=== PATIENT | female | born 1980 | race Caucasian/White ===

== ENCOUNTER 2018-10-31 12:26 | Emergency (ER) | payer OTHER, SELFPAY ==
[2018-10-31] MEDS ORDERED: Acetaminophen 500 MG TAB ONE (14:04)
[2018-10-31] MEDS ORDERED: Metoclopramide HCl 10 MG/2 ML VIAL ONE (14:04)
[2018-10-31] MEDS ORDERED: Ketorolac Tromethamine 30 MG/ML VIAL ONE (14:04)
[2018-10-31 14:06] LABS: #Basophils 0.1 thou/uL (0.0-0.2); #Eosinphils 0.2 thou/uL (0.0-0.7); #Lymphocytes 3.6 thou/uL (1.20-3.40); #Monocytes 0.5 thou/uL (0.11-0.59); #Neutrophils 5.6 thou/uL (1.40-6.50); %Basophils 0.8 % (0.0-1.0); %Eosinophils 1.8 % (0.0-10.0); %Lymphocytes 36.5 % (21.0-51.0); %Monocytes 4.6 % (0.0-10.0); %Neutrophils 56.3 % (42.0-75.0); Hemoglobin 14.4 g/dL (12.0-16.0); Mean Corpuscular HGB CONC 32.4 g/dL (32.0-36.0); Mean Corpuscular Hemoglobin 28.3 pg (27.0-31.0); Mean Corpuscular Volume 87.2 fL (78.0-98.0); Mean Platelet Volume 6.6 fL (7.4-10.4); Platelet Count 303 thou/uL (130-400); RBC Distribution Width 11.6 % (11.5-14.5); Red Blood Cell (RBC) Count 5.09 mill/uL (4.20-5.40); White Blood Cell (WBC) Count 9.9 thou/uL (4.8-10.8)
[2018-10-31 14:11] LABS: BHCG - Serum Negative (NEGATIVE); Pregs Control Background? CLEAR/WHITE (CLR/WHITE); Pregs Control Bar Appear? YES (CONTROL BAR)
[2018-10-31 14:30] LABS: ALT (SGPT) 72 U/L (8-55); AST (SGOT) 57 U/L (5-34); Albumin 4.2 g/dL (3.5-5.0); Alkaline Phosphatase 85 U/L (40-150); Anion Gap 15 mmol/L (10-20); BUN (Urea Nitrogen) 7 mg/dL (7.0-18.7); Bilirubin, Total 0.5 mg/dL (0.2-1.2); Calc. Creatinine Clearance 0 mL/min (70-130); Calcium 10.1 mg/dL (7.8-10.44); Carbon Dioxide 27 mmol/L (22-29); Chloride 99 mmol/L (98-107); Estimated GFR-MDRD 66; Globulin 4.5 g/dL (2.4-3.5); Glucose 170 mg/dL (70-105); Potassium 3.8 mmol/L (3.5-5.1); Protein, Total 8.7 g/dL (6.0-8.3); Sodium 137 mmol/L (136-145)
--- NOTE | 2018-10-31 14:45 | RAD ---
LEFT FOOT RADIOGRAPHS 3 VIEWS: DATE: 10/31/2018. PROVIDED CLINICAL HISTORY: Left foot pain. FINDINGS: There is no evidence for a fracture or other acute osseous abnormality. Alignment appears anatomic. Joint spaces appear preserved. Posterior calcaneal enthesophyte formation is noted. IMPRESSION: No evidence for an acute osseous abnormality. If there is persistent clinical concern, conservative management and followup imaging are advised. POS: [facility]
== END 2018-10-31 15:20 | disposition home or self-care (01) ==
LOC: ERS 12:26
DX: G43.909 Migraine, unspecified, not intractable, without status migrainosus (principal); M79.672 Pain in left foot; I10 Essential (primary) hypertension; F41.9 Anxiety disorder, unspecified
CPT/HCPCS: 80053; 84703; 85025; 96365; 96375; J1885; J2765

== ENCOUNTER 2018-12-05 10:54 | Emergency (ER) | payer SELFPAY ==
--- NOTE | 2018-12-05 12:45 | RAD ---
RIGHT KNEE 4 VIEWS: INDICATION: Knee pain. FINDINGS: Joint spaces are normally maintained. No evidence of x. No evidence of joint effusion. IMPRESSION: No acute finding. POS: [facility]
== END 2018-12-05 12:17 | disposition home or self-care (01) ==
LOC: ERS 10:54
DX: M25.561 Pain in right knee (principal); F41.9 Anxiety disorder, unspecified; I10 Essential (primary) hypertension; Z79.899 Other long term (current) drug therapy; X50.0XXA Overexertion from strenuous movement or load, initial encounter; Y99.0 Civilian activity done for income or pay

== ENCOUNTER 2018-12-16 18:23 | Emergency (ER) | payer BC, SELFPAY ==
--- NOTE | 2018-12-16 19:45 | RAD ---
FRONTAL AND LATERAL IMAGING CHEST 12/16/18 COMPARISON: 05/22/16 HISTORY: Cough. FINDINGS: The lungs are clear. Heart and mediastinal contours are unremarkable. IMPRESSION: No acute findings. POS: [facility]
[2018-12-16] MEDS ORDERED: Dexamethasone 4 mg/ml Vial ONE (20:06)
== END 2018-12-16 20:10 | disposition home or self-care (01) ==
LOC: ERS 18:23
DX: J06.9 Acute upper respiratory infection, unspecified (principal); I10 Essential (primary) hypertension; F41.9 Anxiety disorder, unspecified
CPT/HCPCS: 71046; J1100

== ENCOUNTER 2019-04-13 20:08 | Emergency (ER) | payer BC | END 2019-04-13 21:11 | disposition home or self-care (01) | LOC: ERS 20:08 | DX: R05 Cough (principal); R09.81 Nasal congestion; I10 Essential (primary) hypertension; F41.9 Anxiety disorder, unspecified; Z79.899 Other long term (current) drug therapy | CPT/HCPCS: 99283 ==

== ENCOUNTER 2019-11-06 16:20 | Emergency (ER) | payer BC ==
[2019-11-06 17:01] LABS: Bacteria/HPF 2+ HPF (None Seen); Bilirubin Negative (Negative); Blood, Urine Negative (Negative); Clarity Clear (Clear); Glucose, Urine (Dipstick) Normal (Negative); Leukocyte 250 Leu/uL (Negative); Nitrite Negative (Negative); Protein, Urine (Dipstick) 20 mg/dL (Neg-Trace); RBC/HPF 0-3 HPF (0-3)
== END 2019-11-06 17:50 | disposition home or self-care (01) ==
LOC: ERS 16:20
DX: N39.0 Urinary tract infection, site not specified (principal); I10 Essential (primary) hypertension; F41.9 Anxiety disorder, unspecified; Z79.899 Other long term (current) drug therapy
CPT/HCPCS: 81003; 81015; 87086; 99283